=== PATIENT | male | born 1965 | race Caucasian/White ===

== ENCOUNTER 2021-07-05 16:06 | Emergency (ER) | payer OTHER ==
[~2021-07-05] VITALS: Ht 172.7 cm; Wt 124.7 kg
[2021-07-05 16:28] VITALS: BP 154/77
[2021-07-05] MEDS: KETOROLAC 30 MG/ML VIAL IM ONE (21:03)
[2021-07-05] MEDS: diazePAM 5 MG TAB PO ONE (21:03)
[2021-07-05] MEDS ORDERED: NAPR-54 PO (22:42)
[2021-07-05] MEDS ORDERED: LID5T TP (22:42)
[2021-07-05] MEDS ORDERED: DIAZ5TAB7 PO (22:42)
[2021-07-05 22:48] VITALS: BP 134/77
== END 2021-07-05 22:48 | disposition home or self-care (01) ==
LOC: MED 16:06
DX: M54.59 Other low back pain (principal); M51.36 Other intervertebral disc degeneration, lumbar region; Z87.81 Personal history of (healed) traumatic fracture
CPT/HCPCS: 72131; 81002; 96372; 99284; J1885